=== PATIENT | male | born 1955 | race Caucasian/White ===

== ENCOUNTER → 2018-02-16 | Outpatient (CLI) | payer OTHER ==
--- NOTE | ~2018-02-16 | 2DMMODE ---
[facility] [place] [employer] [place] [address] 2 D/M-MODE ECHOCARDIOGRAM Name: [facility] Room #: REG [facility]#: [id number] Admission: 02/16/18 Attend Phys: Robert Humphries MD Discharge: Date of : 55 Date of Service: 02/16/18 0933 Report #: [id number] THIS REPORT FOR: //name// APPROVED REPORT Study performed: 02/16/2018 08:52:54 EXAM: Comprehensive 2D, Doppler, and color-flow Echocardiogram Patient Location: Out-Patient Status: routine BSA: 2.20 HR: 64 bpm BP: 159/85 mmHg Rhythm: NSR Other Information Study Quality: Adequate Indications CAD, stent. Hx: HTN, HLP, DM. 2D Dimensions RVDd: 39.11 mm LVEF(%): 54.62 (>50%) IVSd: 10.68 (7-11mm) LVOT Diam: 22.15 (18-24mm) LVDd: 52.87 mm PWd: 10.30 (7-11mm) Ascending Ao: 32.29 (22-36mm) LVDs: 37.77 (25-40mm) Aortic Root: 35.[address] LVEF: 54.62 % Volumes Left Atrial Volume (Systole) Single Plane 4CH: 60.87 mL Single Plane 2CH: 49.83 mL LA ESV Index: 27.00 mL/m2 Aortic Valve AoV Peak Pete.: 1.25 m/s AO Peak Gr.: 6.24 mmHg LVOT Max P.05 mmHg LVOT Max V: 1.01 m/s SILVIA Vmax: 3.10 cm2 Mitral Valve E/A Ratio: 1.4 MV Decel. Time: 219.51 ms [facility] [place] [employer] [place] [address] 2 D/M-MODE ECHOCARDIOGRAM Name: [facility] Room #: REG [facility]..#: [id number] Admission: 02/16/18 Attend Phys: Robert Humphries MD Discharge: Date of : 55 Date of Service: 02/16/18 0933 Report #: [id number] MV E Max Pete.: 0.93 m/s MV A Pete.: 0.66 m/s MV PHT: 63.66 ms IVRT: 73.82 ms Pulmonary Valve PV Peak Pete.: 1.03 m/s PV Peak Gr.: 4.27 mmHg Pulmonary Vein P Vein S: 0.69 m/s P Vein A: 0.31 m/s P Vein D: 0.53 m/s P Vein A Dur.: 133.8 msec P Vein S/D Ratio: 1.30 Tricuspid Valve TR Peak Pete.: 1.72 m/s RAP Estimate: 5.00 mmHg TR Peak Gr.: 11.89 mmHg PA Pressure: 17.00 mmHg Left Ventricle The left ventricle is normal size. There is normal left ventricular wall thickness. Left ventricular systolic function is normal. LVEF is 50-55%. Right Ventricle The right ventricle is normal size. The right ventricular systolic function is normal. Atria The left atrium size is normal. The right atrium size is normal. Aortic Valve The aortic valve is normal in structure. No aortic regurgitation is present. There is no aortic valvular stenosis. Mitral Valve The mitral valve is normal in structure. Mild to moderate mitral regurgitation. Tricuspid Valve The tricuspid valve is normal in structure. Trace tricuspid regurgitation. Estimated PAP is 15-20mmHg. Pulmonic Valve The pulmonary valve is normal in structure. Mild pulmonic regurgitation. [facility] [address] [place] [address] 2 D/M-MODE ECHOCARDIOGRAM Name: [id number] Admission: 02/16/18 Attend Phys: Robert Humphries MD Discharge: Date of : 55 Date of Service: 02/16/18 0933 Report #: [id number] Great Vessels The aortic root is normal in size. The ascending aorta is normal in size. IVC is normal in size and collapses >50% with inspiration. Pericardium There is no pericardial effusion. <Conclusion> The left ventricle is normal size. There is normal left ventricular wall thickness. Left ventricular systolic function is normal. The right ventricle is normal size. There is no aortic valvular stenosis. Mild to moderate mitral regurgitation. Trace tricuspid regurgitation. Estimated PAP is 15-20mmHg. <ELECTRONICALLY SIGNED> By: Robert Humphries MD 02/16/18932 2 2 Robert Humphries MD /INF
== END ==
LOC: CV 02-09 09:02
DX: I25.10 Atherosclerotic heart disease of native coronary artery without angina pectoris (principal); I34.0 Nonrheumatic mitral (valve) insufficiency; I10 Essential (primary) hypertension; E11.9 Type 2 diabetes mellitus without complications; E78.5 Hyperlipidemia, unspecified

== ENCOUNTER → 2019-04-26 | Outpatient (CLI) | payer OTHER | LOC: NUC 03-19 06:58 | DX: I25.119 Atherosclerotic heart disease of native coronary artery with unspecified angina pectoris (principal); E78.5 Hyperlipidemia, unspecified; I10 Essential (primary) hypertension; I73.9 Peripheral vascular disease, unspecified; Z79.899 Other long term (current) drug therapy; Z87.891 Personal history of nicotine dependence; Z82.49 Family history of ischemic heart disease and other diseases of the circulatory system ==

== ENCOUNTER → 2020-12-04 | Outpatient (CLI) | payer OTHER | LOC: SJCVCIMAG 09:44 | PROVIDERS: ATTEND Internal Medicine Cardiovascular Disease | DX: I25.10 Atherosclerotic heart disease of native coronary artery without angina pectoris (principal); I49.49 Other premature depolarization; I10 Essential (primary) hypertension; E78.00 Pure hypercholesterolemia, unspecified; R60.9 Edema, unspecified; I73.9 Peripheral vascular disease, unspecified; Z95.828 Presence of other vascular implants and grafts; Z79.82 Long term (current) use of aspirin; Z79.899 Other long term (current) drug therapy; Z87.891 Personal history of nicotine dependence ==

== ENCOUNTER → 2021-06-19 | Outpatient (CLI) | payer OTHER | LOC: SJCVCIMAG 07:48 | PROVIDERS: ATTEND Internal Medicine Cardiovascular Disease | DX: I25.10 Atherosclerotic heart disease of native coronary artery without angina pectoris (principal); R06.00 Dyspnea, unspecified; I73.9 Peripheral vascular disease, unspecified; E78.5 Hyperlipidemia, unspecified; I10 Essential (primary) hypertension; Z98.61 Coronary angioplasty status; Z79.82 Long term (current) use of aspirin; Z79.899 Other long term (current) drug therapy; Z87.891 Personal history of nicotine dependence; Z86.73 Personal history of transient ischemic attack (TIA), and cerebral infarction without residual deficits ==

== ENCOUNTER → 2021-07-29 | Outpatient (CLI) | payer OTHER | LOC: SJCVC 10:06 | PROVIDERS: ATTEND Internal Medicine Cardiovascular Disease | DX: I10 Essential (primary) hypertension (principal); I25.10 Atherosclerotic heart disease of native coronary artery without angina pectoris; E78.00 Pure hypercholesterolemia, unspecified; R60.9 Edema, unspecified; I70.1 Atherosclerosis of renal artery; I73.9 Peripheral vascular disease, unspecified; Z79.82 Long term (current) use of aspirin; Z79.899 Other long term (current) drug therapy; Z87.891 Personal history of nicotine dependence; Z72.89 Other problems related to lifestyle ==